=== PATIENT | male | born 1955 | race African-American/Black ===

== ENCOUNTER 2019-04-21 19:28 | Observation (INO) ==
[2019-04-21] MEDS ORDERED: NS 1,000 ML IV ONE (20:27)
[2019-04-21] MEDS ORDERED: HUMULIN R IV ONE (20:28)
[2019-04-21] MEDS ORDERED: HUMULIN R (PARKWAY) ONE (20:35)
[2019-04-21 20:49] LABS: HEMOGLOBIN 13.2 g/dL (14.0-18.0); MCH 29.4 PG (27-31); MCHC 34.7 g/dL (33-37); MCV 84.6 FL (81-99); MPV 9.9 FL (7.4-10.4); RBC 4.49 XMIL (4.7-6.1); WBC 5.65 X1000 (4.8-10.8)
[2019-04-21 20:55] LABS: ACETONE SERUM NEGATIVE (NEGATIVE)
[2019-04-21 21:12] LABS: BE -1.3 mmoll (-3.0-3.0); BLOOD TYPE ARTERIAL; HCO3-(ACT) 23.9 mmoll (20.0-26.0); METHB 1.1 % (0.0-1.5); O2(CT) 17.9 mL/dL (15.0-23.0); O2HB 95.2 % (95.0-99.0); PCO2(98.6) 35 mmHg (35-45); PO2(98.6) 83 mmHg (60-100); SAMPLE BLOOD; SAO2 98.2 % (95.0-100.0); THB 13.3 g/dL (11.5-17.4); pH(98.6) 7.42 (7.35-7.45)
[2019-04-21 21:15] LABS: ALLEN TEST YES; MODALITY ROOM AIR
[2019-04-21 21:18] LABS: AGAP 14; ALBUMIN 4.5 g/dL (3.5-5.0); ALKALINE PHOSPHATASE 206 U/L (32-122); BUN 24 mg/dL (8-22); CALCIUM 9.2 mg/dL (8.8-10.2); CHLORIDE 85 mmol/L (98-107); CK PROFILE 609 U/L (24-204); COSMO 292; CREATININE 1.3 mg/dL (0.7-1.2); ESTIMATED GFR 56; GOT 22 U/L (10-34); GPT 18 U/L (10-44); MAGNESIUM 2.3 mg/dL (1.5-2.7); PHOSPHORUS 2.7 mg/dL (2.7-4.5); POTASSIUM 4.5 mmol/L (3.5-5.1); SODIUM 122 mmol/L (136-145); TCO2 23 mmol/L (25-35); TOTAL PROTEIN 7.8 g/dL (6.3-8.3)
--- NOTE | 2019-04-21 21:24 | PROVIDER DOCUMENTATION ---
This chart was entered by Princess Salgado Scribe, acting as scribe for Syed Mitchell MD. HPI-General Adult - General Chief Complaint: DKA ALERT Stated Complaint: ELEVATED BLOOD SUGAR Time Seen by Provider: 04/21/19 19:42 Source: patient Allergies/Adverse Reactions: Patient Allergies Allergy/AdvReac Type Severity Reaction Status Date / Time Penicillins AdvReac HIVES Verified 05/19/18 20:12 Home Medications: Home Medication List Medication Instructions Recorded Confirmed Last Taken Type ATORVAstatin [Lipitor] 20 mg PO DAILY 11/27/15 11/27/15 Unknown History Aspirin 325 mg PO 11/27/15 Unknown History Diltiazem HCl [Cartia Xt] 240 mg PO DAILY 11/27/15 11/27/15 Unknown History Lisinopril 10 mg PO QAM #30 tablet 11/27/15 Unknown Rx Lisinopril 40 mg PO DAILY 11/27/15 11/27/15 Unknown History Oseltamivir [Tamiflu] 75 mg PO BID #10 cap 05/19/18 Unknown Rx - History of Present Illness -Gen Adult Nature of Presenting Problems: pt is a 63 yr old male presenting with complaint of elevated BGL, per pt lab work at PCP today showed high BLG, pt reports he is "prediabetic". pt reports he has been eating more sweets recently including a pack of sugar cookies today. pt was seen by PCP initially due to polyuria and dysuria, pt denies nay other complaint at this time. Location of Pain/Injury: reports: none Pain Radiation: reports: no radiation Quality of Pain: reports: none Onset/Duration: reports: gradual Timing: reports: still present Context/Activities at Onset: reports: light activity Modifying Factors: improves with: nothing Associated Symptoms: reports: genitourinary problems. denies: back/neck pain, chest pain, constipation, cough, diarrhea, dizziness, fatigue, fever/chills, joint pain, nausea, vomiting, weakness Similar Symptoms Previously?: Yes Recently seen or treated by another doctor?: Yes (seen by PCP today) Review of Systems - Adult - REVIEW OF SYSTEMS - ADULT Constitutional: denies: chills, fever, fatique Eyes: denies: blurred vision, double vision Ears, Nose, Mouth & Throat: denies: ear pain, sinus problem, throat pain Cardiovascular: denies: chest pain, palpitations, syncope Respiratory: denies: cough, shortness of breath Gastrointestinal: denies: abdominal pain, diarrhea, nausea, poor appetite, vomiting Genitourinary: reports: dysuria. denies: frequency, flank pain Musculoskeletal: denies: back pain, joint pain Integumentary: reports: no symptoms reported Neurological: denies: dizziness/vertigo, headache/migraines, syncope Psychiatric: reports: no symptoms reported Endocrine: reports: increased thirst, polyuria Hematologic/Lymphatic: reports: no symptoms reported Allergic/Immunologic: reports: no symptoms reported All Other Systems: Reviewed and Negative Past History - Adult - PAST MEDICAL HISTORY-ADULT Review of Records: reports: Old Records Reviewed, Nursing Assessment Review, Medications Reviewed, Social history reviewed & non-contributory. Major Childhood Illnesses: reports: denies history Cardiovascular: reports: denies history Respiratory: reports: denies history Gastrointestinal: reports: denies history Obstetrical/Gynecological: reports: denies history Genitourinary: reports: denies history Musculoskeletal: reports: denies history Neurological: reports: denies history Endocrine/Immune: reports: denies history Other Conditions: reports: denies history - IMMUNIZATION STATUS Childhood Immunizations: See Nurse Assessment Flu Vaccine: See Nurse Assessment - FAMILY HISTORY Family History: reviewed, not pertinent - SOCIAL HISTORY Smoking: non-smoker Substance Use: denies Living Situation: family Physical Exam-General - PHYSICAL EXAM-ADULT Initial Vital Signs Reviewed: Yes - CONSTITUTIONAL General Appearance: appears well, alert, no apparent distress - EYES Eyes: PERRL/EOMI - HEAD, EARS, NOSE, MOUTH & THROAT HENMT: normocephalic/atraumatic, moist mucous membranes, normal ENT inspection - NECK Neck: non-tender, full range of motion, supple, normal inspection - RESPIRATORY Respiratory: chest non-tender, lungs clear, normal breath sounds - CARDIOVASCULAR Cardiovascular: normal peripheral pulses, regular rate, rhythm, no edema - GASTROINTESTINAL (ABDOMEN) Abdominal Exam: normal bowel sounds, non tender, soft - LYMPHATIC Lymphatic: no adenopathy - MUSCULOSKELETAL Back Exam: normal inspection, no CVA tenderness, no vertebral tenderness Extremity: normal range of motion, non-tender, normal gait, normal inspection - SKIN Integumentary: normal color, normal turgor, warm/dry - NEUROLOGIC Neurologic: grossly normal, no motor/sensory deficits - PSYCHIATRIC Psych/Mental Status: normal mood/affect, normal thought content, normal thought process, oriented x 3 Progress - PLAN OF CARE/RESULTS Progress/Plan/Lab Results: Vital Signs - 8 hr 04/21/19 19:37 Temperature 98.3 F Pulse Rate 99 H Respiratory Rate 18 O2 Sat by Pulse Oximetry 95 Orders Category Date Time Status Cardiac Monitoring DIRECTED Care 04/21/19 20:15 Active FSBS [Finger Stick Blood Sugar (ED)] DIRECTED Care 04/21/19 19:40 Active FSBS/Accucheck Result Q1H Care 04/21/19 20:15 Active Saline Loc NOW Care 04/21/19 20:15 Active Vital Signs Order Q1H Care 04/21/19 20:15 Active ABG [RESP] Routine Lab 04/21/19 20:15 Ordered ACETONE SERUM [CHEM] Stat Lab 04/21/19 20:15 Uncollected CBC WITH NO DIFF [HEME] Stat Lab 04/21/19 20:15 Uncollected CK PROFILE [SP CHEM] Stat Lab 04/21/19 20:15 Uncollected COMPREHENSIVE METABOLIC PANEL [CHEM] Stat Lab 04/21/19 20:15 Uncollected LACTATE, PLASMA [CHEM] Stat Lab 04/21/19 20:15 Uncollected MAGNESIUM [CHEM] Stat Lab 04/21/19 20:15 Uncollected PHOSPHORUS [CHEM] Stat Lab 04/21/19 20:15 Uncollected TROPONIN T HIGH SENSITIVITY Stat Lab 04/21/19 20:15 Uncollected UA [URINALYSIS W/POSS RFLX CULT] [URINALYSIS] Stat Lab 04/21/19 20:17 Uncollected URINE DRUG SCREEN PL Stat Lab 04/21/19 20:15 Uncollected URINE DRUG SCREEN Stat Lab 04/21/19 20:15 Uncollected EKG [EKG] Routine Ther 04/21/19 20:15 Ordered Result Diagrams: 04/21/19 20:30 04/21/19 20:30 - CONSULTS/PCP/HOSPITALIST Notification #1 *Consult/PCP/Hospitalist*: Dr. Hassan, hospitalist Time Discussed: 00:35 Consult Disposition: Admit Departure - Departure Date of Disposition Decision: 04/22/19 Time of Disposition Decision: 00:31 DIAGNOSIS: Uncontrolled diabetes mellitus Qualifiers: Diabetes mellitus type: type 2 Glycemic state: with hyperglycemia Qualified Code(s): E11.65 - Type 2 diabetes mellitus with hyperglycemia Disposition: ADMITTED INPATIENT 09 Certified Medical Emergency: Emergent Condition: Stable Referrals and Follow-Ups: Bryan Ceja MD [Primary Care Provider] - - Critical Care Note This patient required my direct & personal management of CC.: No Attestation - Physician/ SALVADOR Attestation Patient care was provided by Advanced Practice Provider:: No The physician spent face to face time with patient:: Yes Advanced Practice Provider documentation review:: Supervising physician onsite and consulted in the evaluation and care of this patient. The physician did have a face to face encounter with the patient. This chart was documented by the indicated scribe, (Princess Salgado Scribe) and accurately reflects the services I performed and decisions made by me, Syed Mitchell MD, as attested by the provider's signature.
[2019-04-21 21:25] LABS: GLUCOSE 865 mg/dL (70-104)
[2019-04-21 21:43] LABS: URINE SOURCE CLEAN CATCH
[2019-04-21 21:44] LABS: CK INDEX 1.5 (0.0-2.5); CK-MB 9.15 ng/mL (0.0-5.0)
[2019-04-21 21:46] LABS: BILIRUBIN URINE NEGATIVE (NEGATIVE); BLOOD URINE NEGATIVE (NEGATIVE); COLOR STRAW; GLUCOSE URINE >1000 mg/dL (NEGATIVE); KETONE URINE TRACE mg/dL (NEGATIVE); LEUKOCYTES URINE NEGATIVE (NEGATIVE); NITRITE URINE NEGATIVE (NEGATIVE); PROTEIN URINE NEGATIVE (NEGATIVE); SP GRAVITY URINE 1.031; TURBIDITY URINE CLEAR (CLEAR); UROBILINOGEN URINE NORMAL (NORMAL)
[2019-04-21 21:48] LABS: UR EPITHELIAL CELLS <10 /HPF (<10); URINE BACTERIA NEGATIVE /HPF; URINE RBC <10 /HPF (<10); URINE WBC <10 /HPF (<10)
[2019-04-22] MEDS ORDERED: NS 1,000 ML IV ONE ×2 (00:37→10:46)
[2019-04-22] MEDS ORDERED: HUMULIN R (PARKWAY) SUBQ ONE (00:40)
[2019-04-22] MEDS: HUMULIN R (PARKWAY) SUBQ SCH ×6 (04:53→22:03)
[2019-04-22] MEDS ORDERED: HUMULIN R (PARKWAY) SUBQ SCH (05:00)
[2019-04-22] MEDS ORDERED: MORPHINE IV ONE (07:42)
[2019-04-22] MEDS ORDERED: ZOFRAN IV ONE (07:42)
[2019-04-22] MEDS: LANTUS INSULIN SUBQ SCH (09:00)
[2019-04-22] MEDS ORDERED: TYLENOL PO PRN (10:22)
[2019-04-22] MEDS ORDERED: ZOFRAN IV PRN (10:22)
[2019-04-22] MEDS ORDERED: APRESOLINE IV PRN (10:47)
[2019-04-22 11:59] LABS: AGAP 14; BUN 14 mg/dL (8-22); CALCIUM 8.9 mg/dL (8.8-10.2); CHLORIDE 100 mmol/L (98-107); COSMO 283; CREATININE 0.9 mg/dL (0.7-1.2); ESTIMATED GFR > 60; GLUCOSE 218 mg/dL (70-104); MAGNESIUM 2.1 mg/dL (1.5-2.7); SODIUM 138 mmol/L (136-145); TCO2 24 mmol/L (25-35)
[2019-04-22] MEDS: NS 1,000 ML IV SCH (13:17)
[2019-04-22 16:41] LABS: AGAP 13; BUN 11 mg/dL (8-22); CALCIUM 8.5 mg/dL (8.8-10.2); CHLORIDE 102 mmol/L (98-107); COSMO 281; CREATININE 0.8 mg/dL (0.7-1.2); ESTIMATED GFR > 60; GLUCOSE 204 mg/dL (70-104); POTASSIUM 4.4 mmol/L (3.5-5.1); SODIUM 138 mmol/L (136-145); TCO2 23 mmol/L (25-35)
[2019-04-22] MEDS ORDERED: PHENERGAN IV PRN (17:39)
[2019-04-22] MEDS ORDERED: SODIUM CHLORIDE 0.9% INJ PRN (17:39)
--- NOTE | 2019-04-22 18:13 | HISTORY AND PHYSICAL ---
CHIEF COMPLAINT: Elevated blood sugar. HISTORY OF PRESENT ILLNESS: This is a 63-year-old gentleman with a history of diabetes mellitus, hyperlipidemia, palpitations. He presents to the emergency room complaining of elevated blood sugar at home as well as at his primary care physician's prior to coming to the emergency room. The patient states that he is noncompliant with his diet, that through the holidays he has been eating a lot more sweets. He ate a whole pack of sugar cookies in the morning prior to coming to the ER. He does have chronic polyuria and polydipsia. PAST MEDICAL HISTORY: 1. Diabetes mellitus type 2 with noncompliance. 2. Hyperlipidemia. 3. Palpitations. PAST SURGICAL HISTORY: Cholecystectomy and hernia repair. SOCIAL HISTORY: He denies any alcohol, tobacco, or illicit drug use. ALLERGIES: Penicillin that causes hives. HOME MEDICATIONS: Lipitor and lisinopril. FAMILY HISTORY: Positive for hypertension, diabetes. REVIEW OF SYSTEMS: Discussed with patient with pertinent positives stated in the HPI. He denied any syncope, dizziness, chest pain, palpitations, any shortness of breath, cough, fever, chills, night sweats, any nausea, vomiting, diarrhea, constipation, any black or bloody vomitus or stools, any hematuria. PHYSICAL EXAMINATION: GENERAL: This is a 63-year-old gentleman who is sitting up on the stretcher in the emergency room in no distress. VITAL SIGNS: Blood pressure is 138/96, with a heart rate of 92, respirations are 20, temperature is 98.3 degrees oral, with room air saturations ranging from 95 to 98%. EYES: Pupils equal, round, react to light. EOMs are intact. Sclerae are anicteric. HENT: Head is normocephalic, atraumatic. Mucous membranes are moist. NECK: Supple with trachea midline. CARDIOVASCULAR: Regular rate and rhythm. S1 and S2 appreciated. He has no lower extremity edema. Calves are nontender bilateral, with peripheral pulses palpable x4 extremities. PULMONARY: Breath sounds are clear. No increased work of breathing noted. Chest rises and falls symmetric with respiration. Chest wall is nontender to palpation. GASTROINTESTINAL: Abdomen is soft, nontender, nondistended, with bowel sounds in all 4 quadrants. GENITOURINARY: No CVA or suprapubic tenderness. NEUROLOGIC: He is alert and oriented x3. SKIN: Warm and dry. LABS: WBC is 5.6, with hemoglobin 13.2, hematocrit 38, and platelets of 200,000. Sodium is 122, potassium 4.5, BUN 24, creatinine 1.3, with a glucose of 865. Urinalysis is positive for greater than 1000 glucose, with trace ketones, otherwise negative. Acetone is negative. ASSESSMENT: 1. Diabetes mellitus with hyperglycemia in a noncompliant patient. 2. Polyuria and polydipsia secondary to #1. 3. Hyponatremia resulting from elevated blood glucose. 4. Acute kidney injury secondary to intravascular volume depletion secondary to elevated glucose. 5. Metabolic acidosis. PLAN: The patient has been admitted to the medical floor and placed on telemetry which we will continue. His blood sugars are now in the 100 to [address] him on q.4 hour blood sugars with sliding scale insulin. We will continue with IV hydration. We will check a BMP at 6 o'clock and then CBC and CMP in the morning. We will place him on a diabetic diet. Will use hydralazine for blood pressure control. Holding lisinopril as his creatinine is 1.3. This should decrease with rehydration. Hopefully, we can restart in the morning. We will use Zofran for nausea. The patient was evaluated and plan was discussed with Dr. Hassan. Further treatments pending hospital course. Dictated by MITCHELL Melgoza for Tej Hassan MD cc: MITCHELL Melgoza MD
[2019-04-23] MEDS: HUMULIN R (PARKWAY) SUBQ SCH ×3 (01:10→10:10)
[2019-04-23] MEDS: NS 1,000 ML IV SCH ×2 (01:11→10:16)
--- NOTE | 2019-04-23 02:41 | HISTORY AND PHYSICAL ---
ADDENDUM: Patient seen and examined by myself. Full note dictated and discussed with nurse practitioner. Patient presented to the hospital today being told that his blood sugar was elevated. States that previously he had been told he was prediabetic. In the ER he was noted to have blood sugar at 865, sodium 122 which obviously corrects to normal. He was not acidotic. His bicarbonate was 23. We are going to admit him to the hospital, place him on insulin, fluids, and we will follow his blood sugars. cc: Tej Hassan MD
[2019-04-23 06:01] LABS: HEMATOCRIT 38.7 % (42.0-52.0); HEMOGLOBIN 12.7 g/dL (14.0-18.0); MCH 28.2 PG (27-31); MCHC 32.8 g/dL (33-37); MCV 85.8 FL (81-99); MPV 9.9 FL (7.4-10.4); RBC 4.51 XMIL (4.7-6.1); RDW 13.4 % (11.5-14.5); WBC 4.38 X1000 (4.8-10.8)
[2019-04-23 06:24] LABS: AGAP 10; BUN 10 mg/dL (8-22); CALCIUM 8.4 mg/dL (8.8-10.2); CHLORIDE 105 mmol/L (98-107); COSMO 282; ESTIMATED GFR > 60; GLUCOSE 166 mg/dL (70-104); POTASSIUM 3.4 mmol/L (3.5-5.1); SODIUM 140 mmol/L (136-145); TCO2 25 mmol/L (25-35)
[2019-04-23 07:54] VITALS: BP 149/89
[2019-04-23] MEDS: LANTUS INSULIN SUBQ SCH (10:16)
--- NOTE | 2019-04-24 17:23 | DISCHARGE SUMMARY ---
ADMISSION DATE: 04/22/2019 DISCHARGE DATE: 04/23/2019 SUBJECTIVE: The patient notes that his nausea is improved. He is having no further palpitations. He states he is ready to go home. Denies any fevers or chills. PLAN: We are going to discharge him home. Discussed that he needs to follow up outpatient with his primary care. We are going to continue 5 units of Lantus for now, and we will follow. Please see full note. cc: Tej Hassan MD
--- NOTE | 2019-04-30 05:00 | DISCHARGE SUMMARY ---
ADMISSION DATE: 04/22/2019 DISCHARGE DATE: 04/23/2019 DISCHARGE DIAGNOSES: 1. Diabetes with hyperglycemia. Blood sugar at 65 on admit, 166 on discharge. 2. Hypokalemia. 3. Polyuria, polydipsia secondary to #1. 4. Hyponatremia secondary to markedly elevated blood sugar, stable. 5. Acute kidney injury, resolved. 6. Metabolic acidosis resolved. CONSULTATIONS: None. PROCEDURES: None. BRIEF HOSPITAL COURSE: Patient is a 63-year-old male who presented to the hospital with markedly elevated blood sugars at 865. He was admitted and placed on sliding scale insulin, was given diabetic education. He continued to improve. On discharge, patient notes he is feeling much better. He has no further complaints or issues. His blood sugars were 160s on discharge. DISPOSITION: Greater than 30 minutes was spent in total care. Discussed with patient that he needs to avoid high sugary content foods. He needs to eat more of a diabetic diet. He is to follow up with his primary care in 1 week to recheck his blood sugar and will follow. cc: Tej Hassan MD
== END 2019-04-23 11:56 | disposition home or self-care (01) ==
LOC: P.EDIPHOLD 19:28 → P.ED 19:28 → P.MEDSURG 19:28
PROVIDERS: ATTEND Family Medicine